=== PATIENT | male | born 1980 | race Caucasian/White ===

== ENCOUNTER 2020-11-04 08:54 | Emergency (ER) | payer SELFPAY ==
[~2020-11-04] VITALS: Ht 182.9 cm; Wt 97.0 kg
[2020-11-04] MEDS ORDERED: MORPHINE SULFATE 4 MG/ML VIAL. IV ONE (09:15)
[2020-11-04] MEDS ORDERED: ONDANSETRON PF 4 MG/2 ML VIAL. IVP ONE (09:15)
[2020-11-04] MEDS ORDERED: IV NORMAL SALINE 1000ML BAG 1,000 ML IV SCH (09:15)
[2020-11-04] MEDS ORDERED: KETOROLAC 30 MG/ML VIAL. IVP ONE (09:15)
--- NOTE | 2020-11-04 09:16 | PHYS DOC ---
Past Medical History Past Medical History: No Pertinent History Past Surgical History: No Surgical History Alcohol Use: Occasionally Drug Use: None General Adult EDM: Chief Complaint: FLANK PAIN HPI: HPI: Patient is a 40 year old male who presents to ER for evaluation of left flank pain started yesterday. Pain WAS subsided then this morning it woke him up at 4:30 AM with severe pain again. Patient said his urine appeared to be darker than normal. Patient denies any chest pain, no trouble breathing. Patient described the pain as sharp stabbing pain, caused him to have nausea and sweaty. Patient had no previous history of kidney stone before. Patient said about 4 days ago he had the same pain but more in his stomach area, not as severe. Patient works as construction mgr, he has been remodeling and flipping house, not eating regularly. Patient also has some itching rash on his body from working in some old house. Review of Systems: Review of Systems: Constitutional: Denies fever or chills. [] Eyes: Denies change in visual acuity. [] HENT: Denies nasal congestion or sore throat. [] Respiratory: Denies cough or shortness of breath. [] Cardiovascular: Denies chest pain or edema. [] GI: Positive for left flank pain, nausea, : Denies dysuria. [] Musculoskeletal: Denies back pain or joint pain. [] Integument: Positive for rash. [] Neurologic: Denies headache, focal weakness or sensory changes. [] Endocrine: Denies polyuria or polydipsia. [] Lymphatic: Denies swollen glands. [] Psychiatric: Denies depression or anxiety. [] Heart Score: C/O Chest Pain: Yes HEART Score for Chest Pain: HEART Score for Chest Pain Response (Comments) Value History Slighlty/Non-Suspicious 0 ECG Normal 0 Age < 45 0 Risk Factors No Risk Factors 0 Troponin < Normal Limit 0 Total 0 Risk Factors: Risk Factors: DM, Current or recent (<one month) smoker, HTN, HLP, family history of CAD, obesity. Risk Scores: Score 0 - 3: 2.5% MACE over next 6 weeks - Discharge Home Score 4 - 6: 20.3% MACE over next 6 weeks - Admit for Clinical Observation Score 7 - 10: 72.7% MACE over next 6 weeks - Early Invasive Strategies Allergies: Allergies: Allergies Coded Allergies Type Severity Reaction Last Updated Verified Penicillins Allergy Intermediate Swelling 11/04/20 Yes Physical Exam: PE: Constitutional: Well developed, well nourished, no acute distress, non-toxic appearance. [] HENT: Normocephalic, atraumatic, bilateral external ears normal, oropharynx moist, no oral exudates, nose normal. [] Eyes: PERRLA, EOMI, conjunctiva normal, no discharge. [] Neck: Normal range of motion, no tenderness, supple, no stridor. [] Cardiovascular:Heart rate regular rhythm, no murmur [] Lungs & Thorax: Bilateral breath sounds clear to auscultation [] Abdomen: Bowel sounds normal, soft, left upper: Tenderness to palpation, no masses, no pulsatile masses. [] Skin: Warm, dry, no erythema, skin lesions on extremities and trunk sporadically. Back: No tenderness, positive for left CVA tenderness. [] Extremities: No tenderness, no cyanosis, no clubbing, ROM intact, no edema. [] Neurologic: Alert and oriented X 3, normal motor function, normal sensory function, no focal deficits noted. [] Psychologic: Affect normal, judgement normal, mood normal. [] Current Patient Data: Labs: Laboratory Tests Test 11/04/20 08:57 11/04/20 09:25 Urine Collection Type Unknown Urine Color Yellow Urine Clarity Clear Urine pH 7.0 Urine Specific [place] 1.020 Urine Protein Negative mg/dL Urine Glucose (UA) Negative mg/dL Urine Ketones (Stick) Negative mg/dL Urine Blood Negative Urine Nitrite Negative Urine Bilirubin Negative Urine Urobilinogen Dipstick 0.2 mg/dL Urine Leukocyte Esterase Negative Urine RBC 3-5 /HPF Urine WBC Occ /HPF Urine Squamous Epithelial Cells Occ /LPF Urine Bacteria 0 /HPF Urine Mucus Slight /LPF White Blood Count 8.9 x10^3/uL Red Blood Count 5.67 x10^6/uL Hemoglobin 15.5 g/dL Hematocrit 46.7 % Mean Corpuscular Volume 82 fL Mean Corpuscular Hemoglobin 27 pg Mean Corpuscular Hemoglobin Concent 33 g/dL Red Cell Distribution Width 13.7 % Platelet Count 363 x10^3/uL Neutrophils (%) (Auto) 58 % Lymphocytes (%) (Auto) 28 % Monocytes (%) (Auto) 11 % Eosinophils (%) (Auto) 2 % Basophils (%) (Auto) 1 % Neutrophils # (Auto) 5.1 x10^3/uL Lymphocytes # (Auto) 2.5 x10^3/uL Monocytes # (Auto) 1.0 x10^3/uL Eosinophils # (Auto) 0.2 x10^3/uL Basophils # (Auto) 0.0 x10^3/uL Sodium Level 142 mmol/L Potassium Level 4.5 mmol/L Chloride Level 105 mmol/L Carbon Dioxide Level 31 mmol/L Anion Gap 6 Blood Urea Nitrogen 12 mg/dL Creatinine 1.1 mg/dL Estimated GFR (Cockcroft-Gault) 74.9 BUN/Creatinine Ratio 11 Glucose Level 100 mg/dL Calcium Level 9.0 mg/dL Total Bilirubin 0.2 mg/dL Aspartate Amino Transf (AST/SGOT) 13 U/L Alanine Aminotransferase (ALT/SGPT) 50 U/L Alkaline Phosphatase 72 U/L Troponin I Quantitative < 0.017 ng/mL Total Protein 7.3 g/dL Albumin 3.8 g/dL Albumin/Globulin Ratio 1.1 Lipase 205 U/L Current Medications Medications (Trade) Dose Ordered Sig/Jayson Route PRN Reason Start Time Stop Time Status Last Admin Dose Admin Sodium Chloride 1,000 ml @ 1,000 mls/hr Q1H IV 11/04/20 09:15 11/04/20 10:14 DC 11/04/20 09:26 Ondansetron HCl (Zofran) 4 mg 1X ONCE IVP 11/04/20 09:15 11/04/20 09:18 DC 11/04/20 09:27 Ketorolac Tromethamine (Toradol 30mg Vial) 30 mg 1X ONCE IVP 11/04/20 09:15 11/04/20 09:18 DC 11/04/20 09:27 Morphine Sulfate (Morphine Sulfate) 4 mg 1X ONCE IV 11/04/20 09:15 11/04/20 09:18 DC 11/04/20 09:27 Multi-Ingredient Mouthwash/Gargle (Gi Cocktail) 20 ml 1X ONCE SWSW 11/04/20 11:45 11/04/20 11:46 11/04/20 11:25 Famotidine (Pepcid Vial) 20 mg 1X ONCE IVP 11/04/20 11:45 11/04/20 11:46 11/04/20 11:25 EKG: EKG: EKG was done at 949, heart rate 76 bpm, normal sinus rhythm, no ST segment elevation. Normal axis. Radiology/Procedures: Radiology/Procedures: [][facility] [address] [place] [address] IMAGING REPORT Signed PATIENT: LUPIS BONE ACCOUNT: [id number] : 1980 LOCATION: ER AGE: 40 SEX: M EXAM STATUS: PRE ER ORD. PHYSICIAN: TAMIKO WHITNEY DO REASON: LEFT FLANK PAIN PROCEDURE: CT ABDOMEN PELVIS WO CONTRAST PQRS Compliance Statement: One or more of the following individualized dose reduction techniques were utilized for this examination: 1. Automated exposure control 2. Adjustment of the mA and/or kV according to patient size 3. Use of iterative reconstruction technique CT abdomen/pelvis without contrast 11/04/2020 9:16 AM INDICATION: Left flank pain COMPARISON: None available TECHNIQUE: Multiple axial CT images of the abdomen and pelvis were obtained without intravenous contrast. Coronal and sagittal reformats are provided. FINDINGS: Visualized portions of the lung bases are clear. Heart size is within normal limits. Evaluation of the solid abdominal viscera is limited by lack of intravenous contrast. No suspicious hepatic masses are identified. Spleen, bilateral adrenal glands, and pancreas are normal in appearance. Gallbladder is present without adjacent inflammatory changes. The abdominal aorta is normal in course and caliber. There are no pathologically enlarged lymph nodes in the abdomen and pelvis. There is no abdominal free fluid. There is no free intraperitoneal air. Gastrohepatic lymph node measures 1.0 cm by short axis (series 2, image 44). Small and large bowel are normal in caliber. Mild adjacent gastric inflammation. There is no evidence for bowel obstruction. There are no pericolonic inflammatory changes. A normal, nondilated appendix is visualized without adjacent inflammatory changes. Urinary bladder is within normal limits. Prostate seminal vesicles are normal in appearance. No suspicious osseous normality is identified. IMPRESSION: No acute abnormality is identified in abdomen and pelvis. Borderline gastrohepatic lymph node may be reactive. Mild perigastric inflammation. Correlate with any signs and symptoms of esophagitis or gastritis. Electronically signed by: Yany Arora MD (11/04/2020 9:34 AM) [id number] DICTATED and SIGNED BY: YANY ARORA MD DATE: 11/04/20 [id number] 0 Course & Med Decision Making: Course & Med Decision Making Pertinent Labs and Imaging studies reviewed. (See chart for details) Patient is a 40-year-old male who presented to ER due to epigastric and flank pain. Symptoms consistent with gastritis. Patient was given GI cocktail and Pepcid in ER, he felt much better. Patient also has some rash on his body and extremity. Patient will be discharged home with medications. Dragon Disclaimer: [email or web address] Disclaimer: This electronic medical record was generated, in whole or in part, using a voice recognition dictation system. Departure Departure Impression: Primary Impression: Gastritis Additional Impressions: Flank pain Rash Disposition: 01 DC HOME SELF CARE/HOMELESS Condition: STABLE Patient Instructions: Flank Pain, Gastritis, Adult, Rash Additional Instructions: Thank you for visiting our Emergency Department. We appreciate you trusting us with your care. If any additional problems come up don't hesitate to return to visit us. Please follow up with your primary care provider so they can plan additional care if needed and know about the problem that you had. If symptoms worsen come back to the Emergency Department. Any concerning symptoms that start such as chest pain, shortness of air, weakness or numbness on one side of the body, running high fevers or any other concerning symptoms return to the ER. Scripts Triamcinolone Acetonide (TRIAMCINOLONE ACETONIDE 0.5% OINT) 15 Gm Oint...g. 1 JEFF TP PRN TID PRN for rash, #30 GM 0 Refills apply to affected area(s) Prov: TAMIKO WHITNEY DO 11/04/20 Sucralfate (CARAFATE) 1 Gm Tablet 1 TAB PO QID for 14 Days, #56 TAB 0 Refills Prov: TAMIKO WHITNEY DO 11/04/20 Omeprazole Magnesium (PRILOSEC OTC) 20 Mg Tablet. 1 TAB PO DAILY for 30 Days, #30 TAB 0 Refills Prov: TAMIKO WHITNEY DO 11/04/20 TAMIKO WHITNEY DO Nov 04, 2020 09:16
[2020-11-04 09:33] LABS: BILIRUBIN,URINE NEGATIVE (NEG); CLARITY,URINE CLEAR; COLOR,URINE YELLOW; NITRITE,URINE NEGATIVE (NEG); PROTEIN,URINE NEGATIVE (NEG-TRACE); UROBILINOGEN,URINE 0.2 mg/dL (0.2 mg/dL)
--- NOTE | 2020-11-04 09:37 | RAD ---
PQRS Compliance Statement: One or more of the following individualized dose reduction techniques were utilized for this examinat ion: 1. Automated exposure control 2. Adjustment of the mA and/or kV according to patient size 3. Use of iterative reconstruction technique CT abdomen/pelvis without contrast 11/04/2020 9:16 AM INDICATION: Left flank pain COMPARISON: None available TECHNIQUE: Multiple axial CT images of the abdomen and pelvis were obtained without intravenous contr ast. Coronal and sagittal reformats are provided. FINDINGS: Visualized portions of the lung bases are clear. Heart size is within normal limits. Evaluation of the solid abdominal viscera is limited by lack of intravenous contrast. No suspicious hepatic masses are identified. Spleen, bilateral adrenal glands, and pancreas are nadir l in appearance. Gallbladder is present without adjacent inflammatory changes. The abdominal aorta is normal in course and caliber. There are no pathologically enlarged lymph nodes in the abdomen and pelvis. There is no abdominal free fluid. There is no free intraperitoneal air. G astrohepatic lymph node measures 1.0 cm by short axis (series 2, image 44). Small and large bowel are normal in caliber. Mild adjacent gastric inflammation. There is no evidence for bowel obstruction. There are no pericolonic inflammatory changes. A normal, nondilated appendix is visualized without adjacent inflammatory changes. Urinary bladder is within normal limits. Prostate seminal vesicles are normal in appearance. No suspi cious osseous normality is identified. IMPRESSION: No acute abnormality is identified in abdomen and pelvis. Borderline gastrohepatic lymph node may be reactive. Mild perigastric inflammation. Correlate with an y signs and symptoms of esophagitis or gastritis. Electronically signed by: Radha Gary MD (11/04/2020 9:34 AM) [id number]
[2020-11-04 09:43] LABS: BACTERIA,URINE 0 /HPF (0-FEW); WBC,URINE OCC /HPF (0-4)
[2020-11-04 09:49] LABS: CREATININE 1.1 mg/dL (0.7-1.3); GFR 74.9; POTASSIUM 4.5 mmol/L (3.5-5.1)
[2020-11-04 09:55] LABS: ALBUMIN 3.8 g/dL (3.4-5.0); ALBUMIN/GLOBULIN RATIO 1.1 (1.0-1.7); BASO % 1 % (0-3); EOS # 0.2 x10^3/uL (0.0-0.7); EOS % 2 % (0-3); HEMATOCRIT 46.7 % (39.0-53.0); HEMOGLOBIN 15.5 g/dL (13.0-17.5); LYMPH # 2.5 x10^3/uL (1.0-4.8); LYMPH % 28 % (24-48); MEAN CORPUSCULAR HEMOGLOBIN 27 pg (25-35); MEAN CORPUSCULAR HGB CONC 33 g/dL (31-37); MEAN CORPUSCULAR VOLUME 82 fL (79-100); MONO % 11 % (0-9); NEUT # 5.1 x10^3/uL (1.8-7.7); NEUT % 58 % (31-73); PLATELET COUNT 363 x10^3/uL (140-400); RED BLOOD COUNT 5.67 x10^6/uL (4.30-5.70); RED CELL DISTRIBUTION WIDTH 13.7 % (11.5-14.5); TOTAL BILIRUBIN 0.2 mg/dL (0.2-1.0); TOTAL PROTEIN 7.3 g/dL (6.4-8.2); WHITE BLOOD COUNT 8.9 x10^3/uL (4.0-11.0)
--- NOTE | 2020-11-04 11:16 | EKG ---
[facility] [address] [place] [address] Test Date: 2020-11-04 Test Time: 09:49:01 Pat Name: LUPIS BONE Department: Room: Gender: M [employer]: : 1980 Requested By: TAMIKO WHITNEY Order Number: [id number] Reading MD: Measurements Intervals [place] Rate: 76 P: 34 AL: 178 QRS: 58 QRSD: 98 T: 28 QT: 358 QTc: 407 Interpretive Statements SINUS RHYTHM NORMAL ECG RI6.02 No previous ECG available for comparison
[2020-11-04] MEDS ORDERED: LIDO:MAALOX 1:1 20 ML SINGLE DOSE. SWSW ONE (11:45)
[2020-11-04] MEDS ORDERED: FAMOTIDINE 20 MG/2 ML VIAL IVP ONE (11:45)
[2020-11-04] MEDS ORDERED: OMEP20TA63 PO (11:52)
[2020-11-04] MEDS ORDERED: SUCR1TAB35 PO (11:52)
[2020-11-04] MEDS ORDERED: TRIA15OI9 TP (11:52)
[2020-11-04 12:01] VITALS: BP 97/48
== END 2020-11-04 12:16 | disposition home or self-care (01) ==
LOC: ER 08:54
DX: K29.70 Gastritis, unspecified, without bleeding (principal); R11.0 Nausea; R21 Rash and other nonspecific skin eruption; R10.9 Unspecified abdominal pain; Z88.0 Allergy status to penicillin
CPT/HCPCS: 36415; 74176; 80053; 81001; 83690; 84484; 85025; 93005; 96361; 96374; 96375; 99285; J1885; J2270; J2405; J3490; J7030